=== PATIENT | female | born 1990 | race Caucasian/White ===

== ENCOUNTER 2020-07-04 13:18 | Emergency (ER) | payer SELFPAY ==
[~2020-07-04] VITALS: Ht 170 cm; Wt 70.0 kg
[2020-07-04 13:29] VITALS: BP 119/77
[2020-07-04] MEDS ORDERED: CYCL10TA9 PO (13:42)
--- NOTE | 2020-07-04 13:43 | ED Back Pain ---
General Chief Complaint: Back Problems Stated Complaint: BACK PAIN Nursing Triage Note: LOWER BILATERALY BACK PAIN X 3 DAYS. HAS BEEN ALTERNATING TYLENOL AND IBUPROFEN WITHOUT RELIEF. Nursing Sepsis Screen: No Definite Risk History of Present Illness Date Seen by Provider: Jul 04, 2020 Time Seen by Provider: 13:30 Initial Comments Patient worked in the garden and then laid on the floor and she had up she felt like her back was very sore mostly in the center of the back somewhat in the paraspinal muscles lumbosacral region. No previous history of back injury note numbness or tingling or pain down the legs has tried some [id number] medications. Location: Lumbar Spine Timing/Duration: 1-2 Days Severity: Mild Pain/Injury Location: Back Method of Injury: Unknown Modifying Factors: Improves With Movement; Worse With Pain Medication Associated Symptoms: No numbness in legs/feet, No tingling in legs/feet, No sensory/motor loss; lower back pain; No loss of bladder control, No loss of bowel control Allergies and Home Medications Patient Home Medication List Home Medication List Reviewed: Yes Review of Systems Constitutional: no symptoms reported Musculoskeletal: back pain; No muscle pain, No muscle stiffness, No muscle weakness Psychiatric/Neurological: Denies Numbness, Denies Paresthesia, Denies Tingling, Denies Weakness Past Galjfqy-Ehmlep-Gvsjwd Hx Past Med/Social Hx: Reviewed Nursing Past Med/Soc Hx Patient Social History Alcohol Use: Denies Use Recreational Drug Use: No Smoking Status: Current Everyday Smoker Type Used: Cigarettes 2nd Hand Smoke Exposure: No Recent Foreign Travel: No Contact w/Someone Who Travel: No Recent Infectious Disease Expo: No Recent Hopitalizations: No Physical Abuse: No Sexual Abuse: No Mistreated: No Fear: No Seasonal Allergies Seasonal Allergies: No Past Medical History Surgeries: Yes Appendectomy, Tubal Ligation Respiratory: No Cardiac: No Neurological: No Genitourinary: No Gastrointestinal: No Musculoskeletal: No Endocrine: No HEENT: No Cancer: No Psychosocial: No Integumentary: No Blood Disorders: No Physical Exam Vital Signs Vital Signs - First Documented 07/04/20 13:29 Temp 36.7 Pulse 96 Resp 18 B/P (MAP) 119/77 (91) Pulse Ox 98 O2 Delivery Room Air Capillary Refill : Less Than 3 Seconds Height, Weight, BMI Height: '" Weight: lbs. oz. kg; 24.00 BMI Method: General Appearance: No Apparent Distress, WD/WN Back: Normal Inspection, Other (mild paraspinous muscle spasm right at the L5- S1 region) Extremity: Normal Inspection, Normal Range of Motion Neurologic/Psychiatric: Alert, Oriented x3, No Motor/Sensory Deficits, Other (negative straight leg raise bilaterally good range of motion good muscular strength and reflexes intact both knees and ankles) Skin: Normal Color, Warm/Dry Progress/Results/Core Measures Results/Orders Vital Signs/I&O 07/04/20 13:29 Temp 36.7 Pulse 96 Resp 18 B/P (MAP) 119/77 (91) Pulse Ox 98 O2 Delivery Room Air Blood Pressure Mean: 91 Departure Impression Primary Impression: Lumbar sprain Qualified Codes: S33.5XXA - Sprain of ligaments of lumbar spine, initial encounter Disposition: 01 HOME, SELF-CARE Condition: Stable Departure-Patient Inst. Referrals: SELFFAHAD MD (PCP/Family) Primary Care Physician Patient Instructions: Lumbar Muscle Strain (DC) Scripts Cyclobenzaprine HCl (Cyclobenzaprine HCl) 10 Mg Tablet 5 MG PO HS PRN for SPASMS, #5 TAB 0 Refills Prov: MARIE MARTINEZ JR, MD 07/04/20 MARIE MARTINEZ JR, MD Jul 04, 2020 13:43
--- OUTSIDE RECORDS SUMMARY | 2020-07-04 15:26 | XMS REPORT | Continuity of Care Document ---
Author Organization Unknown Address Unknown Phone Unavailable Allergies There is no data. Medications There is no data. Problems There is no data. Procedures There is no data. Results Test Result Range PDM - 09 PANEL (PROFILE 1) - 10/04/19 17 :02 Prescribed Drug 1 Alprazolam NRG Creatinine 86.6 mg/dL > or = 20.0 pH 6.4 4.5-9.0 Oxidant NEGATIVE mcg/mL <200 Amphetamines NEGATIVE ng/mL <500 medMATCH Amphetamines CONSISTENT NRG Benzodiazepines POSITIVE ng/mL <100 Marijuana Metabolite NEGATIVE ng/mL <20 medMATCH Marijuana Metab CONSISTENT NRG Cocaine Metabolite NEGATIVE ng/mL <150 medMATCH Cocaine Metab CONSISTENT NRG Opiates NEGATIVE ng/mL <100 medMATCH Opiates CONSISTENT NRG Oxycodone NEGATIVE ng/mL <100 medMATCH Oxycodone CONSISTENT NRG COMMENT NRG Alphahydroxyalprazolam 100 ng/mL <25 medMATCH aOH alprazolam CONSISTENT NRG Alphahydroxymidazolam NEGATIVE ng/mL < 50 medMATCH aOH midazolam CONSISTENT NRG Alphahydroxytriazolam NEGATIVE ng/mL < 50 medMATCH aOH triazolam CONSISTENT NRG Aminoclonazepam NEGATIVE ng/mL <25 medMATCH Aminoclonazepam CONSISTENT NRG Hydroxyethylflurazepam NEGATIVE ng/mL <50 medMATCH OH,Et flurazepam CONSISTENT NR G Lorazepam NEGATIVE ng/mL <50 medMATCH Lorazepam INCONSISTENT NRG Nordiazepam NEGATIVE ng/mL <50 medMATCH Nordiazepam CONSISTENT NRG Oxazepam NEGATIVE ng/mL <50 medMATCH Oxazepam CONSISTENT NRG Temazepam NEGATIVE ng/mL <50 medMATCH Temazepam CONSISTENT NRG Prescribed Drug 2 Lorazepam NRG Barbiturates NEGATIVE ng/mL <300 medMATCH Barbiturates CONSISTENT NRG Methadone Metabolite NEGATIVE ng/mL <100 medMATCH Methadone Metab CONSISTENT NRG Phencyclidine NEGATIVE ng/mL <25 medMATCH Phencyclidine CONSISTENT NRG Encounters ACCT No. Visit Date/Time Discharge Status Pt. Type Provider Facility Loc./Unit Complaint [id number] 10/04/2019 14:45:00 10/04/2019 23:59:5 9 [facility] Outpatient SELF, [facility] [id number] 10/04/2019 14:45:00 Document Registration
== END 2020-07-04 13:44 | disposition home or self-care (01) ==
LOC: ER FS 13:22
DX: S33.5XXA Sprain of ligaments of lumbar spine, initial encounter (principal); F17.210 Nicotine dependence, cigarettes, uncomplicated; X58.XXXA Exposure to other specified factors, initial encounter
CPT/HCPCS: 99284